=== PATIENT | female | born 1985 | race Caucasian/White ===

== ENCOUNTER 2017-05-13 20:06 | Emergency (ER) | payer MEDICAID ==
[~2017-05-13] VITALS: Ht 160 cm; Wt 61.0 kg
[2017-05-13 20:16] VITALS: BP 129/95
[2017-05-13] MEDS ORDERED: AMOX-422 PO (22:21)
== END 2017-05-13 22:33 | disposition home or self-care (01) ==
LOC: ER 20:07
DX: K04.7 Periapical abscess without sinus (principal); Z88.6 Allergy status to analgesic agent; Z88.5 Allergy status to narcotic agent
CPT/HCPCS: 99283

== ENCOUNTER 2019-10-28 01:22 | Emergency (ER) | payer MEDICAID, OTHER ==
[~2019-10-28] VITALS: Ht 160 cm; Wt 62.0 kg
[2019-10-28 01:25] VITALS: BP 136/81
[2019-10-28] MEDS ORDERED: acetaminophen 325mg tablet PO ONE (01:45)
[2019-10-28] MEDS ORDERED: sulfamethoxazole/trimethoprim DS (800/160mg) tablet PO ONE (01:45)
[2019-10-28] MEDS ORDERED: SULF1TAB49 PO (01:47)
== END 2019-10-28 02:09 | disposition home or self-care (01) ==
LOC: ER 01:22
DX: L02.412 Cutaneous abscess of left axilla (principal); Z88.5 Allergy status to narcotic agent; Z88.8 Allergy status to other drugs, medicaments and biological substances; Z79.2 Long term (current) use of antibiotics
CPT/HCPCS: 99283